=== PATIENT | male | born 1995 | race Caucasian/White ===

== ENCOUNTER 2021-07-06 11:10 | Emergency (ER) | payer SELFPAY ==
[2021-07-06 11:33] VITALS: BP 126/75; PULSE 80; RESP 18; TEMP 36.7; O2SAT 100
--- NOTE | 2021-07-06 11:41 | ED.NAVMDI ---
HPI - Nausea/Vomiting/Diarrhea General Chief complaint: Nausea/Vomiting/Diarrhea Stated complaint: Vomiting,Diarrhea,Body Aches,Dizziness Time Seen by Provider: 07/06/21 11:40 Source: patient Mode of arrival: ambulatory Limitations: no limitations History of Present Illness HPI Narrative: Hossein Giraldo is a 26 yo male with PMH of Type 1 DM started on Friday with nausea vomiting and then had diarrhea. Sugar on Friday fluctuating with down as low as 50 but he states that he has been taking of oral fluids and sugar to keep his blood sugar stabilized he is on an insulin pump, monitors his blood glucose closely and today it was 132. He has not been able to eat much he is able to drink and he states that when he eats too much his stomach just gets upset. He denies any fever Related Data Home Medications Medication Instructions Recorded Confirmed insulin aspart U-100 100 unit CONTINUOUS SUBCUTANEOUS 07/06/21 07/06/21 INFUSION DAILY Allergies Allergy/AdvReac Type Severity Reaction Status Date / Time No Known Allergies Allergy Verified 07/06/21 12:06 Review of Systems Review of Systems: CONSTITUTIONAL: Denies fever, chills, sweats. EYES: Denies visual changes, redness, discharge. ENT: Denies rhinorrhea, congestion, sore throat, otalgia. CARDIOVASCULAR: Denies chest pain, palpitations, edema. RESPIRATORY: Denies dyspnea, wheezing, cough GASTROINTESTINAL: Denies abdominal pain, has had nausea, vomiting, diarrhea x 4 days. GENITOURINARY: Denies dysuria, hematuria, abnormal discharge SKIN: Denies rash or itching. NEUROLOGIC: Denies numbness, or focal weakness. PSYCHIATRIC: Denies anxiety or depression. [facility] Past Medical History Medical History Type 1 diabetes Family History Family History Other Diabetes mellitus Social History Social History (Updated 07/06/21 @ 12:00 by Paige Miles CNP) Smoking status: Never smoker Alcohol intake: never Comments At time of signature, I agree with nursing past medical, surgical, social and family history. There is no relevant family history pertinent to the presenting complaint. Exam Narrative: GENERAL: This is a well-nourished, well-developed patient, in mild distress. HEAD: normocephalic, atraumatic. EYES: Sclera clear/white. Vision is grossly intact. EARS: External ears normal, . Hearing grossly intact. NOSE: External nose normal without nasal discharge, nares without redness, no rhinorrhea. THROAT: Mucous membranes moist, NECK: Neck supple, non-tender CARDIOVASCULAR: Regular rate and rhythm without murmurs, gallops, or rubs. RESPIRATORY: Clear to auscultation. Breath sounds equal bilaterally. No wheezes, rales, or rhonchi. GASTROINTESTINAL: Abdomen soft, non-tender, SKIN: warm, intact with no suspicious lesions or rash, good texture and turgor. NEURO: awake, alert, and oriented to person, place and time. There were no obvious focal neurologic abnormalities. Steady gait EXTREMITIES: Normal range of motion. BACK: Nontender without deformity Course Course Emergency Course: Patient developed nausea vomiting diarrhea on Friday and has had difficulty keeping anything down on being nauseated many days, he has also has some dizziness. On insulin pump and his blood sugar this morning was 132 Started on Zofran for nausea, Bentyl, mayuse Imodium-hydrate well and try to eat small amounts of soft food Level of Care: Express Care Visit Vital Signs Vital signs: Vital Signs Temperature 98.0 F 07/06/21 11:33 Pulse Rate 80 07/06/21 11:33 Respiratory Rate 18 07/06/21 11:33 Blood Pressure 126/75 07/06/21 11:33 Pulse Oximetry 100 07/06/21 11:33 Temperature 98.0 F 07/06/21 11:33 Pulse Rate 80 07/06/21 11:33 Respiratory Rate 18 07/06/21 11:33 Blood Pressure 126/75 07/06/21 11:33 Pulse Oximetry 100 07/06/21 11:33 [facility] -
== END 2021-07-06 12:09 | disposition home or self-care (01) ==
PROVIDERS: Emergency Provider Nurse Practitioner
DX: K52.9 Noninfective gastroenteritis and colitis, unspecified (principal); E10.9 Type 1 diabetes mellitus without complications
CPT/HCPCS: 99203; G0463

== ENCOUNTER 2023-05-22 09:14 | Emergency (ER) | payer OTHER, SELFPAY ==
[2023-05-22 09:33] VITALS: BP 123/69; PULSE 83; RESP 18; TEMP 36.4; O2SAT 98
[2023-05-22 09:37] VITALS: BP 123/69; PULSE 83; RESP 18; TEMP 36.4; O2SAT 98
--- NOTE | 2023-05-22 09:47 | ED.NAVMDI ---
HPI - Nausea/Vomiting/Diarrhea General Chief complaint: Abdominal Pain Stated complaint: abdominal pain Time Seen by Provider: 05/22/23 09:18 Source: patient Mode of arrival: ambulatory Limitations: no limitations History of Present Illness HPI Narrative: Patient is a 20-year-old male presents with 2 days of nausea, vomiting, diarrhea and intermittent cramping abdominal pain. Denies any fever, chills, congestion, sore throat. Son recently had the flu. Patient is type 1 diabetic. Reports sugars have been all good ranging from 100-130. Patient is still able to tolerate fluids. Related Data Home Medications Medication Instructions Recorded Confirmed insulin lispro 100 unit/mL 05/22/23 05/22/23 subcutaneous solution (Humalog U-100 Insulin) Allergies Allergy/AdvReac Type Severity Reaction Status Date / Time No Known Allergies Allergy Verified 05/22/23 09:36 Review of Systems Review of Systems: All systems reviewed & are unremarkable except as noted in HPI and below Constitutional: Constitutional: Denies body ache(s), Denies chills, Denies fatigue, Denies fever(s), Denies headache(s), Denies malaise and Denies weakness Eyes: Eyes: Denies blurry vision, Denies irritation and Denies loss of vision ENT: Denies otalgia, Denies headache(s), Denies nasal discharge, Denies sinus pain and Denies sore throat Cardiovascular: Cardiovascular: Denies chest pain, Denies irregular heart rhythm and Denies dyspnea Respiratory: Respiratory: Denies dyspnea Gastrointestinal: Gastrointestinal: Reports abdominal pain, Denies melena, Denies hematochezia, Reports diarrhea, Reports nausea and Reports vomiting Musculoskeletal: Musculoskeletal: Denies back pain, Denies myalgias and Denies arthralgias Integumentary/Breasts: Skin/Breast: Denies pruritus and Denies rash Neurologic: Denies headache(s), Denies loss of vision and Denies weakness Psychiatric: Psychiatric: Reports no additional psychiatric complaints Endocrine: Endocrine: Denies fatigue PMFSH Past Medical History Medical History Type 1 diabetes Family History Family History Other Diabetes mellitus Social History Social History (Reviewed 05/22/23 @ 09:48 by ONESIMO Souza Smoking status: Never smoker Alcohol intake: never Comments At time of signature, agree with nursing past medical, surgical, social and family history. There is no relevant family history pertinent to the presenting complaint. Exam Const: General: cooperative, healthy appearing, comfortable, no acute distress and well nourished Nutritional Appearance: well nourished Orientation/consciousness: patient oriented x3 Limitations: no limitations HENMT: Head: normal to inspection, normocephalic and atraumatic Ears: hearing grossly normal bilaterally and external ears normal Face/Nose/Sinus: Normal external nose present, normal facial exam and face symmetric Face and sinus: normal facial exam and face symmetric Mouth: Yes lip normal Eyes: General: appearance normal, both eyes and all related structures Alignment and Position: alignment normal and position normal Periorbital: periorbital findings normal Eyelids: eyelids normal Pupils: Equal, round and reactive pupils present EOM: EOMs intact bilaterally Neck: Neck: normal visual inspection, full ROM and supple Chest: Chest palpation & inspection: normal inspection of the chest Resp: Effort & Inspection: normal respiratory effort and able to speak in complete sentences Auscultation: clear to auscultation bilaterally Cardio: Rate: regular rate Rhythm: regular rhythm Heart sounds: S1 normal heart sound present and S2 normal heart sound present GI: Inspection: normal to inspection GI Palp: No abdominal tenderness, Yes Soft to palpation, No Firmness to palpation present (GI), No Tenderness to palpation present (G
== END 2023-05-22 10:02 | disposition home or self-care (01) ==
PROVIDERS: Emergency Provider Nurse Practitioner Family
DX: K52.9 Noninfective gastroenteritis and colitis, unspecified (principal); E10.9 Type 1 diabetes mellitus without complications; Z79.4 Long term (current) use of insulin
CPT/HCPCS: 87804; 99213; G0463

== ENCOUNTER 2023-11-20 08:18 | Emergency (ER) | payer OTHER, SELFPAY ==
[2023-11-20 08:31] VITALS: BP 121/64; PULSE 65; RESP 18; TEMP 36.6; O2SAT 98
[2023-11-20 08:32] VITALS: BP 121/64; PULSE 65; RESP 18; TEMP 36.6; O2SAT 98
--- NOTE | 2023-11-20 08:38 | ED.NAVMDI ---
HPI - Nausea/Vomiting/Diarrhea General Chief complaint: Nausea/Vomiting/Diarrhea Stated complaint: vomiting and diarrhea Time Seen by Provider: 11/20/23 08:31 Source: patient, RN notes reviewed and old records reviewed Mode of arrival: ambulatory Limitations: no limitations History of Present Illness HPI Narrative: Patient presents with complaints of nausea, vomiting, diarrhea. He reports that nausea with 1 episode of vomiting began yesterday. He began with abdominal cramping and diarrhea upon awakening this morning. He denies any fever, chills, sweats. He reports he has recently been exposed to somebody with similar symptoms. He has not vomited today. Abdominal pain has not localized. He has had many episodes of abdominal cramping followed by diarrhea this morning reports he took an antidiarrheal at home, this symptom has subsided. Although he has not had anymore vomiting, he does complain of nausea and requests a prescription for Zofran and a work note for today. Related Data Home Medications Medication Instructions Recorded Confirmed insulin lispro 100 unit/mL 05/22/23 05/22/23 subcutaneous solution (Humalog U-100 Insulin) Allergies Allergy/AdvReac Type Severity Reaction Status Date / Time No Known Allergies Allergy Verified 11/20/23 08:32 Review of Systems Review of Systems: All systems reviewed & are unremarkable except as noted in HPI and below Constitutional: Constitutional: Reports no additional constitutional complaints ENT: Reports system reviewed and no additional complaints, except as documented Cardiovascular: Cardiovascular: Reports no additional cardiovascular complaints Respiratory: Respiratory: Reports no additional respiratory complaints Gastrointestinal: Gastrointestinal: Reports as per HPI, Reports no additional gastrointestinal complaints, Denies melena, Denies hematochezia, Reports change in stool character, Denies coffee ground emesis, Reports GI cramping, Denies dysphagia, Reports diarrhea, Reports nausea and Reports vomiting PMF Past Medical History Medical History Type 1 diabetes Family History Family History Other Diabetes mellitus Social History Social History Smoking status: Never smoker Alcohol intake: never Comments At the time of my signature, I reviewed and agree with the nursing past medical, surgical, social, and family history. There is no relevant family history pertinent to the patient complaint. Exam Const: General: cooperative, no acute distress, alert and awake Orientation/consciousness: oriented to person, oriented to place and oriented to time HENMT: Head: normal to inspection Resp: Effort & Inspection: normal respiratory effort and able to speak in complete sentences Auscultation: clear to auscultation bilaterally, no crackles, no rales, no rhonchi and no wheezes Cardio: Palpation: normal PMI Rate: regular rate Rhythm: regular rhythm Heart sounds: S1 normal heart sound present and S2 normal heart sound present GI: GI Palp: No abdominal tenderness, Yes Soft to palpation, No Tenderness to palpation present (GI), No Guarding due to palpation present (GI) and No Rigid due to palpation Auscultation: normal bowel sounds Neuro: General: oriented to person, oriented to place and oriented to time Cranial nerves: Yes CN's II-XII intact bilaterally Psych: Appearance: grossly normal Thought process: Normal thought process present Insight: Good insight present (Psych) Judgement: Good judgement present (Psych) Course Course Level of Care: Express Care Visit Vital Signs Vital signs: Vital Signs Temperature 98 F 11/20/23 08:31 Pulse Rate 65 11/20/23 08:31 Respiratory Rate 18 11/20/23 08:31 Blood Pressure 121/64 11/20/23 08:31 Pulse Oximetry 98 11/20/23 08
== END 2023-11-20 09:03 | disposition home or self-care (01) ==
PROVIDERS: Emergency Provider Nurse Practitioner Family
DX: K52.9 Noninfective gastroenteritis and colitis, unspecified (principal); E10.9 Type 1 diabetes mellitus without complications
CPT/HCPCS: 99212; 99213; G0463